=== PATIENT | male | born 1975 ===

== ENCOUNTER 2017-12-20 20:03 | Emergency (ER) | payer BC, MEDICAID, OTHER ==
[2017-12-20 20:20] VITALS: RESP 16
[2017-12-20 21:31] LABS: BASO # 0.1 K/uL (0.0-0.2); BASO % 0.8 % (0.0-2.0); EOS # 0.1 K/uL (0.0-0.7); EOS % 1.4 % (0.0-4.0); HEMOGLOBIN 11.5 g/dL (12.0-18.0); LYMPH % 27.5 % (20.0-40.0); MEAN CORPUSCULAR HEMOGLOBIN 28.4 pg (27.0-31.0); MEAN CORPUSCULAR HGB CONC 33.9 g/dL (33.0-37.0); MEAN PLATELET VOLUME 10.9 fl (7.2-11.7); MONO # 0.4 K/uL (0.0-0.8); MONO % 5.1 % (0.0-10.0); NEUT # 4.8 K/uL (1.8-7.0); NEUT % 65.2 % (50.0-75.0); NRBC % 0.1 % (0.0-0.0); RBC 4.05 Mil/uL (4.40-5.90); RED CELL DISTRIBUTION WIDTH 13.9 % (11.5-14.5); WHITE BLOOD COUNT 7.4 K/uL (4.8-10.8)
[2017-12-20 21:40] LABS: ALB/GLOB RATIO 1.1 (1.0-2.1); CALCIUM 9.6 mg/dL (8.4-10.2)
--- NOTE | 2017-12-20 22:42 | CP.PCM.CON ---
History of Present Illness - History of Present Illness History of Present Illness: Podiatry consult note for Dr. Castrejon 42M seen in ED complaining of new wound to plantar right second digit. Patient states that he believes the wound was created yesterday after he dried his toes too vigorously after taking a shower. He has not noticed any redness, swelling, drainage, malodor, streaking or other clinical signs of infection coming from the wound. He denies any treatment for the wound up to this point and states t hat he has no pain in the area. He is AAO x 3 and NAD during the examination. Denies any further pedal complaints at this time. Denies any recent N/V/F/C/CP/SOB/D/posterior calf pain when squeezed PMH: HTN, IDDM Meds: See MAY All: Penicillins PSH: Amputation of right hallux (2013) FH: Unremarkable SH: Regular marijuana use, denies tobacco, alcohol or other illicit drug use Review of Systems - Review of Systems All systems: reviewed and no additional remarkable complaints except Review of Systems: as per HPI Past Patient History - Infectious Disease Hx of Infectious Diseases: None - Past Medical History & Family History Past Medical History?: Yes - Past Social History Smoking Status: Never Smoked - CARDIAC Hx Hypertension: Yes - PULMONARY Hx Respiratory Disorders: No - NEUROLOGICAL Hx Neurological Disorder: No - HEENT Hx HEENT Problems: No - RENAL Hx Chronic Kidney Disease: No - ENDOCRINE/METABOLIC Hx Diabetes Mellitus Type 2: Yes - HEMATOLOGICAL/ONCOLOGICAL Hx Blood Disorders: No - INTEGUMENTARY Hx Dermatological Problems: Yes Other/Comment: Diabetic foot ulcer - MUSCULOSKELETAL/RHEUMATOLOGICAL Hx Falls: No - GASTROINTESTINAL Hx Gastrointestinal Disorders: No - GENITOURINARY/GYNECOLOGICAL Hx Genitourinary Disorders: No - PSYCHIATRIC Hx Psychophysiologic Disorder: No Hx Substance Use: Yes ([facility]) - SURGICAL HISTORY Hx Amputation: Yes (RIGHT GREAT TOE) Other/Comment: Hx Right Picc line insertion - ANESTHESIA Hx Anesthesia: Yes Hx Anesthesia Reactions: No Meds Home Medications: Home Medication List Medication Instructions Recorded Confirmed Type Clindamycin [Cleocin] 300 mg PO TID #21 cap 12/20/17 Rx Allergies/Adverse Reactions: Allergies Allergy/AdvReac Type Severity Reaction Status Date / Time Penicillins Allergy RASH Verified 07/27/15 18:13 Physical Exam - Constitutional Appears: Well, Non-toxic, No Acute Distress - Extremities Exam Additional comments: RLE focused exam: Vasc: DP/PT pulses fully palpable 2/4. Skin temperature warm to warm from proximal to distal WNL. CFT < 3 seconds to all digits. Minimal edema noted around wound Neuro: Epicritic and protective sensation grossly diminished Derm: 1 cm x 1 cm open wound noted to plantar right second digit probing down to level of dermis. No probe to bone, no tracking, tunneling or undermining, erythema, malodor, drainage, fluctuance or other clinical signs of infection noted MSK: Previous, well healed right hallux amputation noted. MMT 5/5 in all major muscle groups. ROM WNL at all major LE joints - Neurological Exam Neurological exam: Alert, Oriented x3 - Psychiatric Exam Psychiatric exam: Normal Affect, Normal Mood Results - Vital Signs Recent Vital Signs: Last Vital Signs Temp 98.9 F 12/20/17 20:17 Pulse 90 12/20/17 20:17 Resp 16 12/20/17 20:17 BP 157/110 H 12/20/17 20:17 Pulse Ox 99 12/20/17 20:17 - Labs Result Diagrams: 12/20/17 21:27 12/20/17 21:27 Labs: Laboratory Results - last 24 hr 12/20/17 12/20/17 21:27 21:27 WBC 7.4 RBC 4.05 L Hgb 11.5 L Hct 34.0 L MCV 84.0 MCH 28.4 MCHC 33.9 RDW 13.9 Plt Count 146 MPV 10.9 Neut % (Auto) 65.2 Lymph % (Auto) 27.5 Atlantic % (Auto) 5.1 Eos % (Auto) 1.4 Baso % (Auto) 0.8 Neut # (Auto) 4.8 Lymph # (Auto) 2.0 Atlantic # (Auto) 0.4 Eos # (Auto) 0.1 Baso # (Auto) 0.1 Sodium 139 Potassium 4.0 Chloride 109 H Carbon Dioxide 17 L Anion Gap 17 BUN 59 H Creatinine 2.8 H Est GFR ( Amer) 30 Est GFR (Non-Af Amer) 25 Random Glucose 191 H Calcium 9.6 Total Bilirubin 0.2 AST 24 ALT 31 Alkaline Phosphatase 110 Total Protein 7.7 Albumin 4.0 Globulin 3.7 Albumin/Globulin Ratio 1.1 Assessment & Plan - Assessment and Plan (Free Text) Assessment: 42M seen for clinically uninfected right plantar second digit ulceration Plan: Patient seen and evaluated Plan discussed with Dr. Castrejon Xray reviewed: No evidence of OM or soft tissue emphysema noted WBC: 7.4 Rx Clindamycin Wound cleansed with alcohol and dressed with bacitracin, gauze, kirlix and CCEILIA Patient given surgical shoe and instructed to weight bear on heel at all times Patient instructed to remain off feet at all times and keep dressing C/D/I until he follows up with Dr. Castrejon which he should do JALIL Patient instructed on signs of acute infection and instructed to return to ED immediately should any arise - Date & Time Date: 12/20/17 Time: 22:47
[2017-12-20 22:58] VITALS: BP 130/80; PULSE 78; TEMP 98; O2SAT 98
--- NOTE | 2017-12-21 11:02 | RAD ---
Date of service: 12/20/2017 PROCEDURE: RIGHT FOOT RADIOGRAPHS HISTORY: diabetic foot ulcer COMPARISON: Right foot radiographs 04/08/2015. TECHNIQUE: Three views the right foot of been submitted for interpretation. FINDINGS: Prior right great toe and transmetatarsal amputation reiterated and appears unchanged. Prior osteomyelitis pattern at the distal segments of the right 2nd and 3rd metatarsal bones appears to have resolved with irregular degenerative changes appreciated at the 2nd and 3rd metatarsal phalangeal joints secondarily. No definitive acute periostitis or erosion appreciable to suggest osteomyelitis at this time. MRI is available for more sensitive evaluation if osteomyelitis is suspected. Degenerative changes seen mildly throughout the interphalangeal joints diffusely with remaining joints unremarkable otherwise. Limited soft tissue edema is suspected at the forefoot plantar soft tissues in the interval. 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 Prior great toe and trans 1st transmetatarsal amputation reiterated. No definitive pattern to suggest acute osteomyelitis at this time. Plantar forefoot soft tissue edema noted. MRI is available for follow-up if clinical concern for osteomyelitis remains.
--- NOTE | 2017-12-21 12:13 | ED PDOC ---
Lower Extremity Pain/Injury Chief Complaint (Provider): Toe ulcer History Per: Patient History/Exam Limitations: no limitations Onset/Duration Of Symptoms: Days Current Symptoms Are (Timing): Still Present Severity: Mild Additional Complaint(s): Pt. is a 42 year old Male with history of DM and peripheral neuropathy who noted an open wound to 2nd digit of right foot a couple days ago. He has h/o previous 1st digit amputation to same foot; done by adolescent psychiatrist Dr. Calixto (?) whom is no longer in practice. Pt. currently does not have a adolescent psychiatrist. Pt denies pain, fevers or drainage from site. He has been ambulatory without difficulty. <Amber Thompson - Last Filed: 12/21/17 12:10> <Karolina Brown - Last Filed: 12/23/17 15:03> Time Seen by Provider: 12/20/17 20:30 Chief Complaint (Nursing): Lower Extremity Problem/Injury Past Medical History Reviewed: Nursing Documentation, Vital Signs Vital Signs: Last Vital Signs Temp 98 F 12/20/17 22:57 Pulse 78 12/20/17 22:57 Resp 16 12/20/17 22:57 BP 130/80 12/20/17 22:57 Pulse Ox 98 12/20/17 22:57 - Medical History PMH: Diabetes, HTN Denies: Chronic Kidney Disease - Surgical History Other surgeries: Rigth great toe amputation - Family History Family History: States: Unknown Family Hx - Immunization History Hx Tetanus Toxoid Vaccination: Yes <Amber Thompson - Last Filed: 12/21/17 12:10> Vital Signs: Last Vital Signs Temp 98 F 12/20/17 22:57 Pulse 78 12/20/17 22:57 Resp 16 12/20/17 22:57 BP 130/80 12/20/17 22:57 Pulse Ox 98 12/21/17 12:22 <Karolina Brown - Last Filed: 12/23/17 15:03> - Home Medications Home Medications: Ambulatory Orders Medication Instructions Recorded DAPTOmycin [Cubicin] 650 mg IV DAILY #42 07/31/15 Ertapenem 1gm in NS 50ml [Invanz] 1 gm IV DAILY #42 bag 07/31/15 Insulin Lispro [Humalog (Insulin 5 unit SQ ACTID #1 cartridge 07/31/15 Lispro)] RX: Atorvastatin [Lipitor] 80 mg PO HS #30 tab 07/31/15 RX: Lisinopril [Zestril] 20 mg PO DAILY #30 tab 07/31/15 RX: metFORMIN [glucOPHAGE] 500 mg PO Q12H #60 tab 07/31/15 RX: Insulin Detemir [Levemir] 25 units SC HS #100 units 08/01/15 Ciprofloxacin HCl [Cipro] 500 mg PO BID #14 tablet 01/13/16 Clindamycin [Cleocin] 300 mg PO TID #30 cap 04/16/16 RX: Clindamycin [Cleocin] 300 mg PO TID #21 cap 12/20/17 - Allergies Allergies/Adverse Reactions: Allergies Allergy/AdvReac Type Severity Reaction Status Date / Time Penicillins Allergy RASH Verified 07/27/15 18:13 Review of Systems Skin: Positive for: Lesions Neurological: Positive for: Numbness <Amber Thompson - Last Filed: 12/21/17 12:10> Physical Exam - Physical Exam Appears: Positive for: Well, Non-toxic Skin: Positive for: Normal Color, Warm Cardiovascular/Chest: Positive for: Regular Rate, Rhythm Pulses-Dorsalis Pedis (L): 2+ Pulses-Dorsalis Pedis (R): 2+ Pulses-Post. Tibialis (L): 2+ Pulses-Post. Tibialis (R): 2+ Extremity: Positive for: Other (Right foot: Macerated skin with small open ulcer to plantar aspect of base of 2nd digit, no purulence, no surrounding erythema, tenderness, or fluctuance. (+) previous 1st phalanx amputation, well healed. Rest of right and left foot normal with no open wounds or cellulitis) <Amber Thompson - Last Filed: 12/21/17 12:10> - Laboratory Results Result Diagrams: 12/20/17 21:27 12/20/17 21:27 - ECG O2 Sat by Pulse Oximetry: 98 <Amber Thompson - Last Filed: 12/21/17 12:10> - Laboratory Results Result Diagrams: 12/20/17 21:27 12/20/17 21:27 <Karolina Brown - Last Filed: 12/23/17 15:03> Medical Decision Making Medical Decision Making: Foot x-ray: (-) fx, (-) fb, (-) osteo; as read by me. IV access established, labs sent. Case d/w podiatry resident equipment validation specialist who e valuated pt. bedside, cleaed and dressed wound; recommended abx and close outpt. followup with Dr. Amado. Pt. understands and is comfortable with plan. Clinda po given. Repeat bp 155/90 <Amber Thompson - Last Filed: 12/21/17 12:10> Disposition - Disposition Disposition Time: 23:20 <Amber Thompson - Last Filed: 12/21/17 12:10> <Karolina Brown - Last Filed: 12/23/17 15:03> - Clinical Impression Clinical Impression: Diabetic foot ulcer - Disposition Referrals: Micky Amado DPM [Staff Provider] - Condition: IMPROVED Prescriptions: RX: Clindamycin [Cleocin] 300 mg PO TID #21 cap Instructions: Diabetic Foot Ulcer (DC) Forms: [facility] ([place]) Addendum Addendum: 12/23/17 15:03 Reviewed chart and agree with PA assessment and plan. <Karolina Brown - Last Filed: 12/23/17 15:03>
== END 2017-12-20 22:57 | disposition home or self-care (01) ==
LOC: H.ER 20:03
DX: E11.621 Type 2 diabetes mellitus with foot ulcer (principal); Z79.4 Long term (current) use of insulin; Z89.419 Acquired absence of unspecified great toe